=== PATIENT | female | born 1940 | race Two or more races ===

== ENCOUNTER 2022-12-08 10:39 | Emergency (ER) | payer MEDICARE, OTHER ==
[~2022-12-08] VITALS: Ht 157.5 cm; Wt 54.4 kg
--- NOTE | 2022-12-08 10:45 | NUR ---
RECEIVED PT 82 YRS FEMALE CAME FROM HOME C/O genralized weekness for 1 day accompany by son awake and alert
[2022-12-08] MEDS ORDERED: IV NS 0.9% 1,000 ML BAG IV ONE (11:00)
[2022-12-08] MEDS ORDERED: ONDANSETRON HCL/PF 4 MG/2 ML VIAL IVP ONE (11:00)
--- NOTE | 2022-12-08 11:00 | NUR ---
SON AT BED SIDE
--- NOTE | 2022-12-08 11:05 | NUR ---
SEEN by DR. CORTEZ
[2022-12-08] MEDS ORDERED: ONDANSETRON HCL/PF 4 MG/2 ML VIAL ONE (11:13)
--- NOTE | 2022-12-08 11:15 | NUR ---
BLOOD DRTOW BY LAB TACH
[2022-12-08 11:18] LABS: BASOPHILS # (AUTO) 0.1 K/uL (0.0-0.2); BASOPHILS % (AUTO) 0.4 % (0.0-2.0); EOSINOPHILS % (AUTO) 0.1 % (0.0-6.0); HEMATOCRIT 40 % (33-45); LYMPHOCYTES # (AUTO) 2.6 K/uL (0.8-4.8); LYMPHOCYTES % (AUTO) 15.7 % (20.0-44.0); MEAN CORPUSCULAR HGB CONC 33 g/dl (31.0-36.0); MEAN CORPUSCULAR VOLUME 87 fL (82-100); MONOCYTES # (AUTO) 0.6 K/uL (0.1-1.30); MONOCYTES % (AUTO) 3.5 % (2.0-12.0); NEUTROPHILS # (AUTO) 13.2 K/uL (1.8-8.9); NEUTROPHILS % (AUTO) 80.3 % (43.0-81.0); PLATELET COUNT (AUTO) 388 K/uL (150-450); RED BLOOD CELL COUNT(AUTO) 4.56 MIL/uL (4.0-5.2); WHITE BLOOD COUNT (AUTO) 16.5 K/uL (4.3-11.0)
--- NOTE | 2022-12-08 11:30 | NUR ---
TO CT SCAN OF pelvic and abdomin
--- NOTE | 2022-12-08 11:30 | NUR ---
Elina sears in ED - 12/08/22 at [address] MENENDEZ OF HEAD
[2022-12-08 11:34] LABS: CALCIUM, SERUM 9.4 mg/dL (8.5-10.1); POTASSIUM 3.5 mmol/L (3.5-5.1)
[2022-12-08 11:40] LABS: ALBUMIN 3.6 g/dL (3.4-5.0); BILIRUBIN,DIRECT 0.1 mg/dL (0.0-0.2); BILIRUBIN,TOTAL 0.5 mg/dL (0.2-1.0); TOTAL PROTEIN, SERUM 7.3 g/dL (6.4-8.2)
--- NOTE | 2022-12-08 12:28 | NUR ---
UA SENT TO LAB
[2022-12-08 13:16] VITALS: BP 124/96
[2022-12-08 13:24] LABS: BILIRUBIN,URINE NEGATIVE (NEGATIVE); COLOR,URINE DARK YELLOW (YELLOW); LEUKOCYTE ESTERASE ,URINE 1+ (NEGATIVE); NITRITE, URINE POSITIVE (NEGATIVE); PH,URINE 5.5 (5.0-8.0); PROTEIN,URINE NEGATIVE (NEGATIVE); UGLUCOSE NEGATIVE (NEGATIVE); UROBILINOGEN,URINE 0.2 EU/dL (0.2)
[2022-12-08] MEDS ORDERED: ONDA4TAB5 PO (13:33)
[2022-12-08] MEDS ORDERED: CEPH500C2 PO (13:33)
[2022-12-08 13:49] LABS: BACTERIA,URINE Many /HPF (None Seen)
== END 2022-12-08 13:38 | disposition home or self-care (01) ==
LOC: ER 10:52
DX: N39.0 Urinary tract infection, site not specified (principal); R11.10 Vomiting, unspecified; I10 Essential (primary) hypertension; E11.9 Type 2 diabetes mellitus without complications
CPT/HCPCS: 99285; 74176; 96374; 71045; 96361; 93005; 85025; 80048; 87086; 83690; 80076; 81001; 36415; 82962; J2405; J7030